=== PATIENT | male | born 1960 | race Hispanic/Latino ===

== ENCOUNTER 2017-06-21 19:24 | Emergency (ER) | payer BC, OTHER ==
[2017-06-21 19:53] VITALS: BP 166/90; PULSE 78; RESP 18; TEMP 98; O2SAT 99
--- NOTE | 2017-06-21 20:25 | ED PDOC ---
Lower Extremity Pain/Injury Time Seen by Provider: 06/21/17 20:10 Chief Complaint (Nursing): Lower Extremity Problem/Injury Chief Complaint (Provider): left leg pain/swelling History Per: Patient History/Exam Limitations: no limitations Onset/Duration Of Symptoms: Days (1) Current Symptoms Are (Timing): Still Present Additional History Per: Patient Additional Complaint(s): 57 y/o male presents with lower leg pain/swelling x 1 day. Patient states 10 days ago he sustained a grade 2 muscle tear to thigh muscle from playing soccer. He states right after that he flew to [place] and back. He notes improvement of pain and bruising to thigh but now notes pain/swelling to be in the lower leg. Patient contacted his physician and was told to get a doppler since patient has to fly again for work at the end of this week. Patient denies fever, chest pain, shortness of breath, palpitations, numbness/weakness lower extremities, limitation of movement. Past Medical History Reviewed: Historical Data, Nursing Documentation, Vital Signs Vital Signs: Last Vital Signs Temp 98 F 06/21/17 19:48 Pulse 78 06/21/17 19:48 Resp 18 06/21/17 19:48 BP 166/90 H 06/21/17 19:48 Pulse Ox 99 06/21/17 19:48 - Medical History PMH: No Chronic Diseases - Surgical History Other surgeries: left knee acl repair - Family History Family History: States: No Known Family Hx - Living Arrangements Living Arrangements: With Family - Social History Current smoker - smoking cessation education provided: No Ex-Smoker (has not smoked in the last 12 months): No - Allergies Allergies/Adverse Reactions: Allergies Allergy/AdvReac Type Severity Reaction Status Date / Time No Known Allergies Allergy Verified 06/21/17 20:22 Review of Systems ROS Statement: Except As Marked, All Systems Reviewed And Found Negative Musculoskeletal: Positive for: Leg Pain (left) Physical Exam - Reviewed Nursing Documentation Reviewed: Yes Vital Signs Reviewed: Yes - Physical Exam Appears: Positive for: Well, Non-toxic, No Acute Distress Cardiovascular/Chest: Positive for: Regular Rate, Rhythm Respiratory: Positive for: Normal Breath Sounds Extremity: Positive for: Calf Tenderness (left +truong's. + left lower extremity swelling. FROM.), Other (healing ecchymosis noted distal left medial thigh; mild tenderness superiorly. FROM. No swelling, deformity) Neurologic/Psych: Positive for: Alert, Oriented - ECG O2 Sat by Pulse Oximetry: 99 - Progress ED Course And Treament: venous duplex left lower extremity ordered to r/out DVT EXAM: US Duplex Left Lower Extremity Veins CLINICAL HISTORY: The patient is a 57 years male; Pain and signs and symptoms; Swelling of limb; Lower extremity, left; Leg, lower; Additional info: Calf pain/swelling 06/21/2017 8:22 PM TECHNIQUE: Real-time ultrasound scan of the veins of the left lower extremity with color Doppler flow, spectral waveform analysis and compression. COMPARISON: No relevant prior studies available. FINDINGS: Deep veins: Unremarkable. No DVT in the visualized common femoral, femoral, proximal deep femoral or popliteal veins. The veins demonstrate normal color flow, are normally compressible, with normal phasic flow and/or augmentation response. Superficial veins: Unremarkable. No thrombus in the visualized great saphenous vein. IMPRESSION: Normal left lower extremity duplex venous ultrasound Patient educated on findings, advised RICE. NSAIDs PRN pain. Follow up PMD 2-3 days. Return to ED for worsening/concerning symptoms. Disposition - Clinical Impression Clinical Impression: Left leg pain - Patient ED Disposition Is Patient to be Admitted: No Counseled Patient/Family Regarding: Studies Performed, Diagnosis, Need For Followup - Disposition Disposition: Routine/Home Disposition Time: 21:39 Condition: STABLE Instructions: Leg Pain (ED)
--- NOTE | 2017-06-22 07:55 | US ---
HISTORY: calf pain/swelling . PRIORS: None. FINDINGS: 2-D, color and duplex Doppler analysis of the lower extremity venous circulation using routine protocol from the femoral veins through the popliteal veins. Venous compressibility: Normal. Flow and augmentation patterns: Normal. Visualized veins upper third of calf: Normal. Fox cyst: None. IMPRESSION: No sonographic or Doppler evidence for DVT in left lower extremity. Concordant results (preliminary interpretation) provided by [facility]. Procedure Completed: 21:15. Preliminary ([facility]) Report: Dictated and Authenticated: 21:32. Final Interpretation: 07:53. June 22, 2017.
== END 2017-06-21 21:50 | disposition home or self-care (01) ==
LOC: H.ER 19:24
DX: M79.605 Pain in left leg (principal)